=== PATIENT | female | born 1995 | race African-American/Black ===

== ENCOUNTER 2018-11-14 18:02 | Emergency (ER) | payer OTHER, SELFPAY ==
[2018-11-14 18:03] VITALS: BP 108/60; PULSE 72; RESP 14; TEMP 36.6; O2SAT 100; BMI 24.3
--- NOTE | 2018-11-14 18:31 | CT_ITS ---
STUDY: CT BRAIN WITHOUT CONTRAST REASON FOR EXAM: Female, 23 years old. Head injury RADIATION DOSAGE (If Supplied By Facility): CTDIvol = ( 44.99 ) mGy, DLP = ( 745.49 ) mGycm TECHNIQUE: Transaxial CT imaging of the brain was performed without administration of intravenous contrast material. Individualized dose optimization techniques were used for this CT. COMPARISON: No relevant priors. FINDINGS: Normal soft tissue structures. Normal calvarium. Normal size ventricles and extra-axial spaces for the patient's age. Normal white matter tracts of the cerebral hemispheres. Normal basal ganglia and thalami. Normal brainstem. Normal cerebellum. There is no intracranial hemorrhage. There are no findings of an acute ischemic infarction. Normal visualized paranasal sinuses. CT/Brain/Head without Contrast IMPRESSION: No fracture or hemorrhage. Electronically Signed: Donine Vizcarra MD at 19:06 EDT Tel , Service support ,
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
--- NOTE | 2018-11-14 18:34 | ED.DEP ---
ED Disposition - Plan for ED Patient: Disposition: Home or Assisted Living Instructions: SCALP CONTUSION, No Wake Up Referrals: To Valerio MD [STAFF PHYSICIAN] - 1 Week if not improving Additional Instructions: Tylenol and/or Motrin for pain. Follow-up if not improving. Return to ER if feeling a lot worse or intractable vomiting or very severe headaches.
[2018-11-14] MEDS: Acetaminophen 500 MG Tablet 1000 MG PO (18:46)
[2018-11-14 19:18] VITALS: BP 110/68; PULSE 74; RESP 16; O2SAT 98
--- NOTE | 2018-11-14 19:32 | ED.RN ---
DR. GONZALEZ MADE AWARE OF VISUAL ACUITY TEST. PT D/C PER DR. LOAIZA. PT VERBALIZES UNDERSTANDING OF WRITTEN AND VERBAL DISCHARGE INSTRUCTIONS.
== END 2018-11-14 19:33 | disposition home or self-care (01) ==
LOC: ED 18:47
PROVIDERS: Emergency Provider Emergency Medicine
DX: S09.90XA Unspecified injury of head, initial encounter (principal); Y93.63 Activity, rugby; X58.XXXA Exposure to other specified factors, initial encounter; Y92.9 Unspecified place or not applicable; Y99.9 Unspecified external cause status
CPT/HCPCS: 70450; 99283